=== PATIENT | female | born 1940 | race Caucasian/White ===

== ENCOUNTER → 2017-05-25 | Outpatient (CLI) | payer OTHER ==
[~2017-05-25] MED LIST: ACTOS15 MG PO; AMLODIPINE BES2.5 MG PO; AROMASIN25 MG; ASPIRIN325 M1 PO; ATENOLOL; ATENOLOL50 MG PO; CINNAMON PO; DEMEROL50 MG; FISH OIL 1,0001 CA2 PO; GLIPIZIDE10 MG PO; GLUCOTROL XL; KEFLEX PO; LIPITOR; LISINOPRIL; LISINOPRIL5 MG PO; METFORMIN; METFORMIN PO; MULTIPLE VITAMI1 T11 PO; NIACIN500 M2 PO; NORVASC; PHENERGAN25 MG PO; ULTRAM PO; VICODIN 5/500 T1 TAB PO; VYTORIN 10/80 T1 TAB PO; ZOCOR PO; [UNRECOGNIZED DRUG - OTHER] PO
--- NOTE | ~2017-05-25 | CT14 ---
[facility] A Service of [facility] & [facility] RADIOLOGY TEXT RESULTS PATIENT: BEHZAD ANDERSON LOCATION: CCAT : 39 UNIT #: [id number] AGE: [address]: GUS ELKINS MD SEX: F ORDER DR: [id number] [facility] [address] [place], [place] [address] [id number] O MR#: [id number] [facility] #: [id number] NAME: BEHZAD ANDERSON : 1940 SEX: F STUDY DATE/TIME: 05/25/2017 15:23 UNIT: [facility] ROOM: STUDY DESCRIPTION: CT Angio Abdomen and Pelvis Attending Physician: Gus Elkins M.D. Referring Physician: Gus Elkins M.D. Ordering Physician: Gsu Elkins M.D. Primary Care Physician: Lucia Duke M.D. MEDICAL IMAGING REPORT This report is preliminary unless electronic signature is present EXAM CT angiogram abdomen, pelvis, bilateral lower extremity runoff INDICATION Peripheral arterial disease. Bilateral leg pain over the past [address] angiogram of the abdomen, pelvis and bilateral lower extremity runoff was performed using the CT runoff protocol. Coronal, sagittal and 3-D reformatted images were obtained. This CT examination was performed with one or more of the following radiation dose reduction techniques: automatic exposure control, adjustment of mA and/or kV according to patient size, and iterative reconstruction. COMPARISON 12/10/2012. FINDINGS CT ANGIOGRAM OF THE ABDOMEN/PELVIS: The abdominal aorta is nonaneurysmal. There is atherosclerotic calcification involving the infrarenal abdominal aorta but no significant narrowing. Mild narrowing of the common iliac arteries due to atherosclerotic plaque. The external iliac arteries are widely patent. Scattered plaque in the internal iliac arteries without significant narrowing. The celiac artery, SMA and inferior mesenteric artery are patent without significant narrowing. Minimal narrowing at the origins of the renal arteries. CT ANGIOGRAM OF THE RIGHT LOWER EXTREMITY: The right common femoral artery demonstrates mild narrowing due to atherosclerotic plaque. Scattered plaque in the right superficial femoral artery. There is [id number] focal narrowing distally in the right superficial femoral artery. The right profunda femoris is patent. Focal severe stenosis involving the below-knee popliteal artery. Occlusion of the posterior tibial artery in [facility] A Service of [facility] RADIOLOGY TEXT RESULTS PATIENT: BEHZAD ANDERSON LOCATION: [facility] : 39 UNIT #: [id number] AGE: [address]: GUS ELKINS MD SEX: F ORDER DR: the upper calf. Dominant runoff to the right foot is via the anterior tibial and peroneal arteries. CT ANGIOGRAM OF THE LEFT LOWER EXTREMITY: The left common femoral artery demonstrates mild to moderate narrowing distally due to atherosclerotic plaque. The left superficial femoral artery demonstrates scattered plaque with areas of mild narrowing and a more focal moderate stenosis distally. Diffuse mild narrowing of the left popliteal artery. The posterior tibial artery is occluded in the upper calf. The dominant runoff to the left foot is via the anterior tibial and peroneal arteries. CT OF THE ABDOMEN: There are emphysematous changes in the lung bases. Tiny hiatal hernia. Liver unremarkable. Cholecystectomy. There is a small presumed cyst in the spleen. There is a cyst arising from the upper pole of the left kidney measuring 4.3 cm. Smaller cyst in the lower pole of the left kidney. Scattered tiny cysts elsewhere in the kidneys. The adrenal glands are unremarkable. The pancreas is unremarkable. PELVIS: Scattered diverticula within the sigmoid. No free fluid. Remainder of the pelvis is unremarkable. The bone windows are unremarkable. IMPRESSION 1. No significant aortoiliac in-flow disease 2. 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 There is some narrowing distally in both superficial femoral arteries. The narrowing is considered mild to moderate on the right and moderate on the left. 3. There is a focal severe stenosis involving the below-knee popliteal artery on the right. Diffuse narrowing of the left popliteal artery. 4. The dominant runoff to both feet is supplied via the anterior tibial and peroneal arteries. 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 5. Additional findings as described. Dictated by... Raleigh Estevez M.D. THIS IS AN ELECTRONICALLY VERIFIED REPORT Raleigh Estevez M.D. at 05/27/2017 7:22 AM ARS/gerry TD: 05/26/2017 09:42 JOB #: [id number] MEDICAL IMAGING REPORT Page 1 of 1 COPY
--- NOTE | ~2017-05-25 | CT20 ---
[facility] A Service of [facility] & [facility] RADIOLOGY TEXT RESULTS PATIENT: BEHZAD ANDERSON LOCATION: [facility] : 39 UNIT #: [id number] AGE: [address]: GUS ELKINS MD SEX: F ORDER DR: [id number] [facility] [address] [place], [place] [address] [id number] O MR#: [id number] Acc #: [id number] NAME: BEHZAD ANDERSON : 1940 SEX: F STUDY DATE/TIME: 05/25/2017 15:23 UNIT: [facility] ROOM: STUDY DESCRIPTION: CT Angio Lower Ext Ian Attending Physician: Gus Elkins M.D. Referring Physician: Gus Elkins M.D. Ordering Physician: Gus Elkins M.D. Primary Care Physician: Lucia Duke M.D. MEDICAL IMAGING REPORT This report is preliminary unless electronic signature is present EXAM CT angiogram bilateral lower extremities INDICATION Peripheral arterial disease, bilateral leg pain over the past 2 years. FINDINGS Please see CT angiogram abdomen and pelvis for results. Dictated by... Raleigh Estevez M.D. THIS IS AN ELECTRONICALLY VERIFIED REPORT Raleigh Estevez M.D. at 05/27/2017 7:23 AM RAHEL/gerry TD: 05/26/2017 09:45 JOB #: [id number] MEDICAL IMAGING REPORT Page 1 of 1 COPY
[2017-05-25 21:26] LABS: POC - CREATININE 1.23 mg/dL (0.44-1.03)
== END | disposition home or self-care (01) ==
LOC: CCAT 14:30
PROVIDERS: Internal Medicine Cardiovascular Disease
DX: E11.51 Type 2 diabetes mellitus with diabetic peripheral angiopathy without gangrene (principal); I77.1 Stricture of artery; K57.30 Diverticulosis of large intestine without perforation or abscess without bleeding; D73.4 Cyst of spleen; Q61.02 Congenital multiple renal cysts; Z90.49 Acquired absence of other specified parts of digestive tract
CPT/HCPCS: 73706; 74174; 82565; Q9967